=== PATIENT | male | born 1995 | race Caucasian/White ===

== ENCOUNTER 2021-05-21 02:04 | Emergency (ER) | payer SELFPAY ==
[~2021-05-21] VITALS: Ht 167.6 cm; Wt 74.4 kg
--- NOTE | 2021-05-21 02:10 | NUR ---
PT DENIES ANY MEDICAL COMPLAINTS. STATED I WOULD LIKE TO SLEEP IN A BED, I AM TIRED.
[2021-05-21 02:17] VITALS: BP 134/69
== END 2021-05-21 02:56 | disposition home or self-care (01) ==
LOC: ER 02:34
DX: Z02.89 Encounter for other administrative examinations (principal); Z59.00 Homelessness unspecified